=== PATIENT | female | born 1975 | race Caucasian/White ===

== ENCOUNTER 2022-07-26 12:14 | Emergency (ER) | payer SELFPAY ==
--- NOTE | 2022-07-26 12:19 | NUR ---
PATIENT LEFT WITHOUT BEING SEEN BY DR. SINGER. NO FURTHER CARE PROVIDED FOR PATIENT.
== END 2022-07-26 12:19 | disposition left against medical advice (07) ==
LOC: MED 12:14
DX: R06.02 Shortness of breath (principal); Z53.21 Procedure and treatment not carried out due to patient leaving prior to being seen by health care provider